=== PATIENT | male | born 1975 | race Caucasian/White ===

== ENCOUNTER → 2017-02-22 | Outpatient (CLI) | payer OTHER ==
--- NOTE | 2017-02-23 08:46 | KCIC ---
PROCEDURE MRI of the lumbar spine without contrast 02/22/2017 HISTORY Low back pain with left leg weakness worsening over the last 8 months. TECHNIQUE Unenhanced T1 weighted, T2 weighted and inversion recovery sagittal and T1 weighted and T2 weighted axial images of the lumbar spine were obtained. FINDINGS Very mild S-shaped curvature of the thoracolumbar spine is seen. Degenerative signal changes are seen involving all of the discs of the lumbar spine including the T12-L1 disc. Degenerative signal changes are seen within the marrow surrounding these discs. The conus medullaris is normal in morphology, position, and signal characteristics. At the T12-L1 disc space there is a mild generalized disc bulge. Superimposed on this disc bulge is a right paracentral focal disc herniation. This measures 4.5 millimeters in AP diameter. Degenerative changes are seen involving the facet joints bilaterally. There is mild ligamentum flavum hypertrophy bilaterally. There is prominence of the posterior epidural fat. These findings when combined result in mild right-sided central spinal canal stenosis. No neural foraminal stenosis is seen. At the L1-2 disc space there is a mild generalized disc bulge. This is eccentric to the left. Degenerative changes are seen involving the facet joints bilaterally. There is mild ligamentum flavum hypertrophy bilaterally. These findings when combined do not result significant central spinal canal or neural foraminal stenosis. At the L2-3 disc space there is a mild generalized disc bulge. This is eccentric to the right. Degenerative changes are seen along the facet joints bilaterally. There is mild ligamentum flavum hypertrophy bilaterally. These findings when combined do not result in significant central spinal canal or neural foraminal stenosis. At the L3-4 disc space there is a mild generalized disc bulge. Degenerative changes are seen involving the facet joints bilaterally. There is mild to moderate ligamentum flavum hypertrophy bilaterally. There is prominence of the posterior epidural fat. These findings when combined do not result in significant central spinal canal or neural foraminal stenosis. At the L4-5 disc space there is a moderate generalized disc bulge. This is eccentric to the left. Superimposed on this disc bulge is a left lateral disc osteophyte complex. This measures 6 millimeters in AP diameter. Degenerative changes are seen involving facet joints bilaterally. There is moderate ligamentum flavum hypertrophy bilaterally. There is prominence of the posterior epidural fat. These findings when combined result in mild central spinal canal stenosis. Mild to moderate left neural foraminal stenosis is seen. The disc osteophyte complex appears to impinge to some degree upon the exiting left L4 nerve root. The right neural foramina is patent. At the L5-S1 disc space there is a mild generalized disc bulge. Degenerative changes are seen involving the facet joints bilaterally. These findings when combined do not result in significant central spinal canal or neural foraminal stenosis. IMPRESSION The changes of degenerative disc disease are seen throughout the lower thoracic and throughout the lumbar spine. These findings result in mild right-sided central spinal canal stenosis at T12-L1 and mild central spinal canal stenosis at L4-5. Mild to moderate left neural foraminal stenosis is seen at L4-5. A left lateral disc osteophyte complex is seen at L4-5 which appears to impinge to some degree upon the exiting left L4 nerve root. Electronically signed by: Tyson Ruby MD (February 23, 2017 08:44:04)
== END | disposition home or self-care (01) ==
LOC: KCIC MRI 17:20
PROVIDERS: ATTEND Family Medicine
DX: M51.34 Other intervertebral disc degeneration, thoracic region (principal); M54.5 Low back pain; R53.1 Weakness
CPT/HCPCS: 72148

== ENCOUNTER → 2018-06-23 | Outpatient (CLI) | payer OTHER ==
[~2018-06-23] MED LIST: CYCL10TA2 PO; HYDR-963 PO; IBUP-1027 PO; NAPR220C4 PO
--- NOTE | 2018-06-23 19:29 | PAIN ---
DATE OF SERVICE: 06/23/2018 INITIAL CONSULTATION FOR PAIN CLINIC CHIEF COMPLAINT: Low back and left greater than right lower extremity pain. HISTORY OF PRESENT ILLNESS: This is a 43-year-old male who presents with history of pain in the low back and bilateral lower extremities, worse on the left than the right for about 2 years or so. The patient reports it is worse with standing, walking and changing positions across the low back into the posterior gluteus, posterolateral thigh, lateral anterior thigh, medial lower leg. It is worse on the left into the medial calf, into the foot and toes with numbness and tingling. The patient reports the pain is constant across the low back, throbbing with radiating pain into the legs, again worse on the left side, a tingling and burning sensation as well as worse with standing, walking and changing positions, better with sitting, but only for a short period of time. The patient reports it does awaken him from sleep at least 3-4 times during the night and this is becoming much more difficult to sleep because of the pain. The patient reports it does not affect his bowel or bladder control, but does affect his ability to walk with significant fatigability in the left lower extremity as well as some in the right, but mostly on the left side. The patient reports that his disability rating from 0-10, 10 being the worst, is a 5 with family and home responsibilities, 6 with recreation and social activity, 7 with occupation, 2 with sexual behavior, 3 with life support activities, 0 with self-care activities. The patient did have an MRI scan of the lumbar spine showing multilevel lumbar spondylosis, severely involving L4-L5 and L3-L4 with disk osteophyte formation at L3-L4, bilateral neural foraminal stenosis, [id number] and L4-L5 shows disk osteophyte formation, severe facet and ligamentum flavum hypertrophic change with moderate right and moderate to severe left neural foraminal stenosis and disk desiccation at L5-S1 as well. The patient again reports no complete loss of motor function with significant fatigability, especially the left leg with ambulation and shooting pain in the lower extremity in a traveling radicular fashion. PAST MEDICAL HISTORY: Significant for COPD and arthritis. 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 CURRENT MEDICATIONS: Include cyclobenzaprine, ibuprofen, hydrocodone and naproxen. ALLERGIES: The patient has no known drug allergies. FAMILY HISTORY: Significant for heart disease, diabetes and cancers. SOCIAL HISTORY: The patient drinks 2-3 alcoholic drinks about 2-3 times a week, does not smoke, use chewing tobacco for about 10-15 years. Does not use any illegal or recreational or illicit drugs. He is and lives with his spouse, has 2 children living at home, lives locally in [place], [place] and works as a fire sprinkler inspection and cycle repairer. REVIEW OF SYSTEMS: The patient's review of systems is positive for those items mentioned in history of present illness. All systems reviewed and otherwise negative. It is complete, full and well documented on the patient's chart. PHYSICAL EXAMINATION: VITAL SIGNS: Today, the patient's blood pressure is 182/110, pulse 91, respirations 18, temperature is 98.2 degrees Fahrenheit. Height is 5 feet 10 inches, weight is 349 pounds. GENERAL: The patient is awake, alert, oriented, appropriate, very pleasant demeanor. HEENT: Head shows normocephalic, atraumatic. Extraocular movements are intact and symmetrical. Oral cavity: Mucous membranes are moist and pink. Dentition is intact. NECK: Shows anterior throat supple without palpable lymphadenopathy noted. Swallow reflex is symmetrical. CHEST: Shows normal on inspection. Breath sounds are clear to auscultation bilaterally. HEART: Shows S1, S2 clear. No murmurs auscultated. ABDOMEN: Soft, nontender, nondistended. No palpable organomegaly is noted. No rebound or guarding demonstrated. BACK: Shows spine grossly in the midline. Normal appearing thoracic kyphosis and some minor flattening of lumbar lordotic curvature. Lumbar paraspinous muscle shows symmetrical on inspection, on palpation shows some moderate tenderness diffusely, but without radiation, without atrophy or hypertrophy, and no asymmetry. The patient has good rotational motion of lumbar spine, both laterally as well as extension and flexion without significant pain reported. No tenderness over the sacrum, sacroiliac regions or over the spinous processes. EXTREMITIES: The patient's lower extremities show deep tendon reflexes at 2+ in the patellar and 1+ tendo calcaneus tendons. Motor exam is strong with 5/5 dorsiflexion and extension. Peripheral pulses are 1+ posterior tibia. No peripheral edema is noted. Straight leg raise noted to be mildly positive on the left, but very mildly or so at 45 degrees with knee flexion, right side is negative. Gaenslen's and German's maneuvers are negative bilaterally. The patient is able to stand, stand on his toes without significant difficulty or loss of balance, walks with a slight shuffling gait, does appear to favor the left lower extremity to a mild extent with ambulation, but not using any assistive devices such as canes or walkers to ambulate. SKIN: Shows warm and dry, good turgor. No edema. No sores, rashes or bruising. IMPRESSION: 1. This is a 43-year-old male with approximate 2-year history of increasing pain in the low back, left greater than right bilateral lower extremities. 2. MRI scan of lumbar spine as noted. 3. History of arthritis. PLAN: Options were discussed with the patient including conservative medical management, physical therapies and interventional techniques and he has had physical therapies previously several years ago. He is still doing the exercises daily and doing some walking daily as much as he can tolerate, trying to keeping some activity, but continues to do his physical therapy exercises on his own at least twice a day, especially with stretching and strengthening exercises. He would like to pursue interventional techniques. We discussed a lumbar epidural steroid injection using descriptions as well as anatomical models to describe the procedure. The patient to wait for preauthorization from his insurance provider first. We will proceed with a lumbar epidural steroid injection at that time. In the meantime, we will try Medrol Dosepak. The patient was given instructions as well as side effects to be aware of with the medication. He will return once preauthorization is obtained. Again, with radicular pain in the L4-L5 dermatomal distribution, resistant to physical therapies and exercise on his own. TONA WOODS MD DR: REED/fifi JOB#: [id number] / [id number] LORENA Da Silva MD
== END | disposition home or self-care (01) ==
LOC: PNCL 07:42
PROVIDERS: ATTEND Anesthesiology
DX: M54.5 Low back pain (principal); M79.604 Pain in right leg; M79.605 Pain in left leg; M19.90 Unspecified osteoarthritis, unspecified site; J44.9 Chronic obstructive pulmonary disease, unspecified; Z83.3 Family history of diabetes mellitus; Z82.49 Family history of ischemic heart disease and other diseases of the circulatory system; Z80.9 Family history of malignant neoplasm, unspecified
CPT/HCPCS: 99214

== ENCOUNTER → 2018-07-07 | Outpatient (CLI) | payer OTHER ==
[~2018-07-07] MED LIST changes: +IOHEXOL 180 MG/ML 10 ML VIAL. ONE; +LIDOCAINE 2% PF 2ML VIAL. ONE; +methylPREDNISolone ACETATE 40 MG/ML VIAL. ONE; +methylPREDNISolone ACETATE 80 MG/ML VIAL. ONE
--- NOTE | 2018-07-07 18:56 | PAIN ---
DATE OF SERVICE: 07/07/2018 PROGRESS NOTE FOR PAIN CLINIC DIAGNOSES: Lumbar radiculopathy with lumbar degenerative disk disease and lumbar spondylosis. HISTORY OF PRESENT ILLNESS: The patient is a 43-year-old male who returns for followup status post initial evaluation and preauthorization for lumbar epidural steroid injection. The patient still has significant pain and radicular pain in his left lower extremity, in the low back, posterior gluteus, posterior thigh, lateral thigh, anterior thigh, medial thigh, medial lower leg. The patient reports it has been worse this week and has been on his feet, quite a bit with work and it has been aching, shooting, burning and becoming more constant. The patient reports it is 7-8 on a scale of 10 at its worst, 6 on average, 3 at its least and is a 6 today. The patient reports no new motor or sensory deficits. No new bowel or bladder incontinence or other complaints. Reports it does not awaken him from sleep at night generally, worse with standing, walking, changing positions or with repetitive bending. The patient reports no other changes. PHYSICAL EXAMINATION: VITAL SIGNS: The patient's blood pressure is 152/104, pulse 83, respirations 16, temperature 98.0 degrees Fahrenheit, height is 5 feet 10 inches, weight is 360 pounds. GENERAL: The patient is awake, alert, oriented, appropriate, very pleasant demeanor. HEENT: Head is normocephalic, atraumatic. Extraocular movements are intact, symmetrical. Oral cavity, mucous membranes are moist and pink. Dentition intact. NECK: Shows anterior throat supple without palpable lymphadenopathy noted. Swallow reflex is symmetrical. CHEST: Shows normal with inspection. Breath sounds are clear to auscultation bilaterally. HEART: Shows S1, S2 clear. No murmurs auscultated. ABDOMEN: Obese, soft, nontender, nondistended. No palpable organomegaly. No rebound or guarding demonstrated. BACK: Shows spine grossly in the midline. Normal appearing thoracic kyphosis. Some slight flattening of lumbar lordotic curvature. Lumbar paraspinous muscle shows symmetrical on inspection, on palpation shows some moderate tenderness without radiation, without trigger points. Good rotational motion is maintained both laterally as well as extension and flexion without difficulty. EXTREMITIES: Lower extremities show deep tendon reflexes 2+ in the patellar and tendo calcaneus tendons are 1+. Motor exam is strong with 5/5 dorsiflexion, extension, quadriceps and hamstring flexion. Peripheral pulses are 1+ posterior tibia. No peripheral edema is noted. Options were discussed with the patient. The patient's old chart was reviewed as his current medication regimen updated. Current review of systems updated today as well. We will proceed with a lumbar epidural steroid injection today with fluoroscopic guidance. Risks were again discussed including, but not limited to, bleeding, infection, possibility of epidural hematoma, subsequent neurologic compromise, dural puncture, headaches, spinal cord and/or nerve damage, side effects of steroid medication and poor results regarding pain control. The patient understands and wished to proceed. The patient to return to clinic in approximately 2 weeks for followup, was counseled on return appointment, activity level and side effects to be aware of. DIAGNOSIS: Lumbar radiculopathy with lumbar degenerative disk disease, lumbar spondylosis. PROCEDURE: Lumbar epidural steroid injection, translaminar approach at L4-L5 level using C-arm fluoroscopic guidance under sterile prep and drape using local anesthetic. MEDICATION INJECTED: A total of 120 mg Depo-Medrol plus 10 mL of preservative-free normal saline and 2 mL of Isovue for contrast. CONDITION AT DISCHARGE: Stable. The patient tolerated the procedure well, had no complications. TONA WOODS MD DR: REED/fifi JOB#: [id number] / [id number]
== END | disposition home or self-care (01) ==
LOC: PNCL 13:55
PROVIDERS: ATTEND Anesthesiology
DX: M51.16 Intervertebral disc disorders with radiculopathy, lumbar region (principal); M47.26 Other spondylosis with radiculopathy, lumbar region
CPT/HCPCS: 62323; J1030; J1040; J2001; Q9965